=== PATIENT | female | born 2000 | race African-American/Black ===

== ENCOUNTER 2020-10-20 20:18 | Inpatient (IN) ==
[2020-10-20] MEDS ORDERED: ACETAMINOPHEN 1,000 MG/100 ML VIAL IV STA (21:59)
--- NOTE | 2020-10-20 22:07 | Emergency Department Note ---
History of Present Illness General Chief complaint: Shortness of Breath/Dyspnea Stated complaint: TROUBLE BREATHING, POSSIBLY PULLED SOMETHING Time Seen by Provider: 10/20/20 21:38 Source: patient Mode of arrival: ambulatory Limitations: no limitations History of Present Illness Provider complaint: Rib pain, flank pain Onset (ago): day(s) 2 Location: chest Radiation: flank Severity: moderate Pain Consistency: + constant Maximum Pain Intensity: 8 Quality: + constant Relieved By: + none Exacerbated By: + movement Associated symptoms: + nausea/vomiting and + shortness of breath; no chest pain, no cough, no fever/chills, no headaches and no syncope Treatments prior to arrival: none This is a 20-year-old female presents emergency department complaining of left flank and rib pain. Patient states pain is constant, sharp, initially felt it was a little more in the back of posterior flank and then radiated forward to the lateral left ribs. No pain further into the central chest or abdomen. No recent trauma or change in activity. Patient denies any recent leg swelling or calf tenderness. Patient denies any recent fevers, chills, cough, or other URI symptoms. Patient does use control. No recent worsening seasonal allergies or asthma-like symptoms. Patient denies any similar prior episodes. Patient denies any history of heart problems. Denies any family history of young onset CAD or sudden cardiac . Denies any family history of DVT/PE. Patient states taking a deep breath makes the pain worse, standing up and walking makes the pain hurt worse, as well as lying flat. Pt seen during a time of high acuity and national emergency pandemic while wearing PPE. Home Medications Medication Instructions Recorded Confirmed Type albuterol sulfate 90 mcg/actuation 2 puff INHALATION QID PRN #6.7 g 06/10/20 10/20/20 Rx aerosol inhaler desogestrel 0.15 mg-ethinyl 1 tab PO DAILY #28 tab 06/11/20 10/20/20 Rx estradiol 0.03 mg tablet escitalopram oxalate 10 mg tablet 10 mg PO DAILY #30 tab 08/12/20 10/20/20 Rx Allergies Allergy/AdvReac Type Severity Reaction Status Date / Time No Known Allergies Allergy Verified 10/20/20 22:18 Past Med/Surg History Medical History Acne Anxiety Asthma Depression Surgical History History of wisdom tooth extraction Family History Denies family history of Ovarian cancer Prostate cancer Myocardial infarction Breast cancer Colorectal cancer Social History Smoking Status: Never smoker Hx Alcohol Use: Yes Alcohol type: wine Alcohol Intake Frequency: 2-3 x/Week Hx Substance Use: Yes Prescribed Medications: Marijuana Last Used Substance Other:: Quit using Marijuana 09/2019 Preferred Language: Croatian marital status: Single Current Living Situation: Other Current Living Situation Comment: lives with roommates current occupational status: employed and student current occupation: [employer] Feels Safe at Home: Yes caffeine: Yes Dental Care, Regularly: Yes Physical Activity Frequency: 1-2 Times per Week Seatbelt Use: always Sunscreen Use: No Review of Systems See HPI for pertinent positives & negatives. and A total of 10 systems reviewed and were otherwise negative Physical Exam Vital Signs Vital Signs - 24 hr 10/20/20 20:21 10/20/20 22:05 10/20/20 22:17 Temperature 37.3 C Temperature Source Oral Pulse Rate 107 H Pulse Rate [Finger] 86 Pulse Rate from SpO2 Sensor Pulse Rhythm Regular Pulse Strength Normal Respiratory Rate 22 18 Respiratory Effort / Characteristics Non-Labored Spontaneous Respiratory Depth Normal Respiratory Pattern Regular Blood Pressure 138/82 Blood Pressure [Left Arm] 129/72 Blood Pressure Mean 100 Blood Pressure Mean [Left Arm] 91 Blood Pressure Position Sitting Blood Pressure Position [Left Arm] Sitting Pulse Oximetry 99 99 Oxygen Delivery Method Room Air Room Air Oxygen Flow Rate 99 Sepsis Recent Fever Within 48 Hours No Sepsis New/Unexplained Change in Mental Status No Sepsis Action Taken by Nursing Physician Notified 10/21/20 00:20 10/21/20 00:22 10/21/20 00:27 Temperature Temperature Source Pulse Rate 75 77 Pulse Rate [Finger] 78 Pulse Rate from SpO2 Sensor 77 77 Pulse Rhythm Pulse Strength Respiratory Rate 32 H 14 33 H Respiratory Effort / Characteristics Spontaneous Respiratory Depth Respiratory Pattern Blood Pressure 115/81 Blood Pressure [Left Arm] 115/81 Blood Pressure Mean 92 Blood Pressure Mean [Left Arm] 92 Blood Pressure Position Blood Pressure Position [Left Arm] Pulse Oximetry 99 98 98 Oxygen Delivery Method Room Air Oxygen Flow Rate Sepsis Recent Fever Within 48 Hours Sepsis New/Unexplained Change in Mental Status Sepsis Action Taken by Nursing 10/21/20 00:30 10/21/20 00:31 10/21/20 00:40 Temperature Temperature Source Pulse Rate 76 75 88 Pulse Rate [Finger] Pulse Rate from SpO2 Sensor 77 76 86 Pulse Rhythm Pulse Strength Respiratory Rate 29 H 17 25 H Respiratory Effort / Characteristics Respiratory Depth Respiratory Pattern Blood Pressure 123/77 Blood Pressure [Left Arm] Blood Pressure Mean 92 Blood Pressure Mean [Left Arm] Blood Pressure Position Blood Pressure Position [Left Arm] Pulse Oximetry 99 99 100 Oxygen Delivery Method Oxygen Flow Rate Sepsis Recent Fever Within 48 Hours Sepsis New/Unexplained Change in Mental Status Sepsis Action Taken by Nursing 10/21/20 00:50 10/21/20 01:00 10/21/20 01:01 Temperature Temperature Source Pulse Rate 85 75 79 Pulse Rate [Finger] Pulse Rate from SpO2 Sensor 82 74 81 Pulse Rhythm Pulse Strength Respiratory Rate 24 22 31 H Respiratory Effort / Characteristics Respiratory Depth Respiratory Pattern Blood Pressure 116/80 Blood Pressure [Left Arm] Blood Pressure Mean 92 Blood Pressure Mean [Left Arm] Blood Pressure Position Blood Pressure Position [Left Arm] Pulse Oximetry 98 98 98 Oxygen Delivery Method Oxygen Flow Rate Sepsis Recent Fever Within 48 Hours Sepsis New/Unexplained Change in Mental Status Sepsis Action Taken by Nursing 10/21/20 01:10 10/21/20 01:20 10/21/20 01:30 Temperature Temperature Source Pulse Rate 78 77 79 Pulse Rate [Finger] Pulse Rate from SpO2 Sensor 76 77 77 Pulse Rhythm Pulse Strength Respiratory Rate 13 34 H 31 H Respiratory Effort / Characteristics Respiratory Depth Respiratory Pattern Blood Pressure 119/71 Blood Pressure [Left Arm] Blood Pressure Mean 87 Blood Pressure Mean [Left Arm] Blood Pressure Position Blood Pressure Position [Left Arm] Pulse Oximetry 99 98 99 Oxygen Delivery Method Oxygen Flow Rate Sepsis Recent Fever Within 48 Hours Sepsis New/Unexplained Change in Mental Status Sepsis Action Taken by Nursing 10/21/20 01:31 10/21/20 01:40 10/21/20 01:50 Temperature Temperature Source Pulse Rate 76 78 77 Pulse Rate [Finger] Pulse Rate from SpO2 Sensor 76 79 79 Pulse Rhythm Pulse Strength Respiratory Rate 36 H 32 H 18 Respiratory Effort / Characteristics Respiratory Depth Respiratory Pattern Blood Pressure Blood Pressure [Left Arm] Blood Pressure Mean Blood Pressure Mean [Left Arm] Blood Pressure Position Blood Pressure Position [Left Arm] Pulse Oximetry 99 99 98 Oxygen Delivery Method Oxygen Flow Rate Sepsis Recent Fever Within 48 Hours Sepsis New/Unexplained Change in Mental Status Sepsis Action Taken by Nursing 10/21/20 02:00 10/21/20 02:01 10/21/20 02:10 Temperature Temperature Source Pulse Rate 77 77 73 Pulse Rate [Finger] Pulse Rate from SpO2 Sensor 74 77 74 Pulse Rhythm Pulse Strength Respiratory Rate 27 H 25 H 33 H Respiratory Effort / Characteristics Respiratory Depth Respiratory Pattern Blood Pressure 125/81 Blood Pressure [Left Arm] Blood Pressure Mean 95 Blood Pressure Mean [Left Arm] Blood Pressure Position Blood Pressure Position [Left Arm] Pulse Oximetry 98 99 98 Oxygen Delivery Method Oxygen Flow Rate Sepsis Recent Fever Within 48 Hours Sepsis New/Unexplained Change in Mental Status Sepsis Action Taken by Nursing 10/21/20 02:20 10/21/20 02:30 10/21/20 02:31 Temperature Temperature Source Pulse Rate 73 90 92 H Pulse Rate [Finger] Pulse Rate from SpO2 Sensor 75 89 91 H Pulse Rhythm Pulse Strength Respiratory Rate 20 23 20 Respiratory Effort / Characteristics Respiratory Depth Respiratory Pattern Blood Pressure 130/92 Blood Pressure [Left Arm] Blood Pressure Mean 104 Blood Pressure Mean [Left Arm] Blood Pressure Position Blood Pressure Position [Left Arm] Pulse Oximetry 99 98 98 Oxygen Delivery Method Oxygen Flow Rate Sepsis Recent Fever Within 48 Hours Sepsis New/Unexplained Change in Mental Status Sepsis Action Taken by Nursing 10/21/20 02:40 10/21/20 02:50 10/21/20 02:56 Temperature Temperature Source Pulse Rate 81 82 84 Pulse Rate [Finger] Pulse Rate from SpO2 Sensor 80 83 82 Pulse Rhythm Pulse Strength Respiratory Rate 22 28 H 29 H Respiratory Effort / Characteristics Respiratory Depth Respiratory Pattern Blood Pressure 134/80 Blood Pressure [Left Arm] Blood Pressure Mean 98 Blood Pressure Mean [Left Arm] Blood Pressure Position Blood Pressure Position [Left Arm] Pulse Oximetry 99 98 99 Oxygen Delivery Method Oxygen Flow Rate Sepsis Recent Fever Within 48 Hours Sepsis New/Unexplained Change in Mental Status Sepsis Action Taken by Nursing 10/21/20 03:00 Temperature Temperature Source Pulse Rate 93 H Pulse Rate [Finger] Pulse Rate from SpO2 Sensor 90 Pulse Rhythm Pulse Strength Respiratory Rate 36 H Respiratory Effort / Characteristics Respiratory Depth Respiratory Pattern Blood Pressure 129/84 Blood Pressure [Left Arm] Blood Pressure Mean 99 Blood Pressure Mean [Left Arm] Blood Pressure Position Blood Pressure Position [Left Arm] Pulse Oximetry 98 Oxygen Delivery Method Oxygen Flow Rate Sepsis Recent Fever Within 48 Hours Sepsis New/Unexplained Change in Mental Status Sepsis Action Taken by Nursing GENERAL: alert, uncomfortable appearing, well nourished, mild distress, non- toxic EYE EXAM: normal conjunctiva, PERRL and EOM's grossly intact OROPHARYNX: no exudate, no erythema, lips, buccal mucosa, and tongue normal and mucous membranes are moist NECK: supple, no nuchal rigidity, no adenopathy, non-tender LUNGS: Clear to auscultation. Normal chest wall mechanics, no w/r/r, shallow respirations, mild tachypnea noted HEART: no murmurs, S1 normal and S2 normal, pain with palpation of the left lateral ribs, no overlying erythema or rash ABDOMEN: abdomen soft, non-tender, normo-active bowel sounds, no masses, no rebound or guarding. BACK: Back is symmetrical on inspection and there is no deformity, no midline tenderness, no CVA tenderness. SKIN: no rashes and no bruising UPPER EXTREMITIES: upper extremities are grossly normal. FROM, nml pulses b/l. LOWER EXTREMITIES: No pitting edema. FROM, nml pulses b/l. Negative calf tenderness bilaterally. NEURO EXAM: Normal sensorium, cranial nerves II-XII grossly intact, normal speech, no gross weakness of arms, no gross weakness of legs. Gross sensation intact. Course Course 0047: Patient updated on results. Discussed options for disposition as well as concerns given extensive PEs with pulmonary infarct. Patient is still having pain and having shallow rapid respirations at bedside. Will add additional pain medication. Patient in agreement with plan for additional inpatient evaluation. 0145: Case discussed with Dr. Reed. Administered Medications Discontinued Medications Enoxaparin Sodium (Enoxaparin 1 Mg/Kg) 1 mg SQ NOW STA Stop: 10/21/20 01:49 Last Admin: 10/21/20 02:05 Dose: Not Given Documented by: [id number] Enoxaparin Sodium (Enoxaparin 80 Mg/0.8 Ml Syr) 70 mg SQ NOW STA Stop: 10/21/20 02:03 Last Admin: 10/21/20 02:56 Dose: 70 mg Documented by: [id number] Acetaminophen (Ofirmev) 1,000 mg in 100 mls @ 400 mls/hr IV NOW STA Stop: 10/20/20 22:13 Last Infusion: 10/20/20 22:30 Dose: 0 mls/hr Documented by: [id number] Admin: 10/20/20 22:15 Dose: 400 mls/hr Documented by: [id number] Ioversol (Optiray 320 150ml) 115 ml IV ONCE ONE Stop: 10/20/20 23:16 Last Admin: 10/20/20 23:16 Dose: 115 ml Documented by: [id number] Morphine Sulfate (Morphine Sulfate 2 Mg/Ml Carp) 2 mg IV NOW STA Stop: 10/21/20 01:12 Last Admin: 10/21/20 01:38 Dose: 2 mg Documented by: [id number] Medical Decision Making Differential Diagnosis Differential diagnoses includes but is not limited to acute coronary syndrome, myocardial infarction, pericarditis, pulmonary embolus, aortic dissection, pneumonia, pneumothorax, musculoskeletal, shingles, esophageal. Medical Records Attestation: I reviewed the patient's medical records. Home Medications Current Medication List: was personally reviewed by me Laboratory Data Attestation: I reviewed the patient's lab results. Result diagrams: 10/20/20 22:19 10/20/20 22:19 Lab Results 10/20/20 10/20/20 10/20/20 Range/Units 22:19 22:19 22:19 WBC 7.76 (4.8-10.8) K/uL RBC 4.57 (4.2-5.4) M/uL Hgb 12.6 (12.0-16.0) g/dL Hct 37.6 (37-47) % MCV 82.3 (80-100) fL MCH 27.6 (25-34) pg MCHC 33.5 (32-36) g/dL RDW Std Deviation 41.6 (36.4-46.3) fL RDW Coeff of Dony 13.9 (11.5-14.5) % Plt Count 303 (130-400) K/uL MPV 9.8 (7.4-10.4) fL Immature Gran % (Auto) 0.1 % Neut % (Auto) 75.6 % Lymph % (Auto) 15.3 % Day % (Auto) 8.2 % Eos % (Auto) 0.5 % Baso % (Auto) 0.3 % Neut # (Auto) 5.86 (1.4-6.5) K/uL Lymph # (Auto) 1.19 L (1.2-3.4) K/uL Day # (Auto) 0.64 H (0.11-0.59) K/uL Eos # (Auto) 0.04 (0-0.5) K/uL Baso # (Auto) 0.02 (0-0.2) K/uL Immature Gran # (Auto) 0.01 (0.00-0.02) K/uL D-Dimer 1120 H* (0-500) ug/L FEU Sodium 137 (136-145) mmol/L Potassium 3.4 L (3.5-5.1) mmol/L Chloride 106 (98-107) mmol/L Carbon Dioxide 24 (21-32) mmol/L Anion Gap 7.0 (3-11) BUN 10 (7-18) mg/dl Creatinine 0.75 (0.6-1.2) mg/dl Est Cr Clr Drug Dosing 119.7 ml/min Est GFR ( Amer) 132.1 ml/min Est GFR (Non-Af Amer) 113.9 ml/min BUN/Creatinine Ratio 13.9 (10-20) Glucose 94 (70-99) mg/dl Calcium 9.1 (8.5-10.1) mg/dl Magnesium 2.1 (1.8-2.4) mg/dl Total Bilirubin 0.4 (0.2-1) mg/dl AST 73 H (15-37) U/L ALT 22 (12-78) U/L Alkaline Phosphatase 51 (45-117) U/L Troponin I < 0.015 (0-0.045) ng/ml Total Protein 7.8 (6.4-8.2) gm/dl Albumin 3.5 (3.4-5.0) gm/dl Globulin 4.3 H (2.5-4.0) gm/dl Albumin/Globulin Ratio 0.8 L (0.9-2) HCG, Qual (Negative) 10/20/20 Range/Units 22:19 WBC (4.8-10.8) K/uL RBC (4.2-5.4) M/uL Hgb (12.0-16.0) g/dL Hct (37-47) % MCV (80-100) fL MCH (25-34) pg MCHC (32-36) g/dL RDW Std Deviation (36.4-46.3) fL RDW Coeff of Dony (11.5-14.5) % Plt Count (130-400) K/uL MPV (7.4-10.4) fL Immature Gran % (Auto) % Neut % (Auto) % Lymph % (Auto) % Day % (Auto) % Eos % (Auto) % Baso % (Auto) % Neut # (Auto) (1.4-6.5) K/uL Lymph # (Auto) (1.2-3.4) K/uL Day # (Auto) (0.11-0.59) K/uL Eos # (Auto) (0-0.5) K/uL Baso # (Auto) (0-0.2) K/uL Immature Gran # (Auto) (0.00-0.02) K/uL D-Dimer (0-500) ug/L FEU Sodium (136-145) mmol/L Potassium (3.5-5.1) mmol/L Chloride (98-107) mmol/L Carbon Dioxide (21-32) mmol/L Anion Gap (3-11) BUN (7-18) mg/dl Creatinine (0.6-1.2) mg/dl Est Cr Clr Drug Dosing ml/min Est GFR ( Amer) ml/min Est GFR (Non-Af Amer) ml/min BUN/Creatinine Ratio (10-20) Glucose (70-99) mg/dl Calcium (8.5-10.1) mg/dl Magnesium (1.8-2.4) mg/dl Total Bilirubin (0.2-1) mg/dl AST (15-37) U/L ALT (12-78) U/L Alkaline Phosphatase (45-117) U/L Troponin I (0-0.045) ng/ml Total Protein (6.4-8.2) gm/dl Albumin (3.4-5.0) gm/dl Globulin (2.5-4.0) gm/dl Albumin/Globulin Ratio (0.9-2) HCG, Qual Negative (Negative) Imaging Data Radiologist's Impression: CTA chest: Acute lobar, segmental, subsegmental emboli in both lower lobes, left worse than right. No right ventricular strain. 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 Small left pleural effusion. No thoracic aortic aneurysm or dissection. Heart size is normal. No pneumothorax. No acute osseous findings. Radiologist: Lio Mclean MD ECG Data Attestation: I personally reviewed and interpreted this ECG as follows: Indication: + chest pain Rate (beats per minute): 87 Rhythm: + normal sinus ECG Intervals/blocks: + Normal QRS and + Normal QT ECG [place]: + Normal ECG ST segments: + T-wave inversions (V1-2) MDM Narrative This is a 20-year-old female who presents due to concern for left rib and flank pain. Patient was found to be tachycardic and tachypneic here although otherwise hemodynamically stable. No hypoxia noted. No prior similar episodes. No risk factors for cardiac etiology of complaints. Due to patient's use of oral contraceptives and tachycardia, D-dimer was added which is found to be elev ated. Patient sent for CT angiography of the chest which revealed multiple bilateral PEs as well as evolving pulmonary infarct. Did discuss all these results with patient at bedside. She was given medication for pain and monitored on telemetry. Discussed initiation of anticoagulation and monitoring as an inpatient until choice of outpatient anticoagulation was decided and pain was better under control. Patient verbalized understanding of all results and was in agreement with plan. No evidence of right heart strain on CT and troponin negative. Case discussed with the hospitalist, after this discussion patient given dose of Lovenox here. An order was placed for continuous cardiac monitoring. The monitor shows a rate of _101_ with _sinus tachycardia_ rhythm. Impression & Plan Chest pain, Pulmonary embolism, Infarctions, pulmonary Discharge Plan Visit Data Chief Complaint: Shortness of Breath/Dyspnea Stated Complaint: TROUBLE BREATHING, POSSIBLY PULLED SOMETHING ED Provider: Polly Atkins Discharge Problem: Chest pain, Pulmonary embolism, Infarctions, pulmonary Patient Disposition: Being Evaluated by Hospitalist Condition: Fair Forms Stand Alone Forms: My [employer] Prescriptions Prescriptions: No Action escitalopram oxalate 10 mg tablet 10 mg PO DAILY Qty: 30 RF: 5 desogestrel-ethinyl estradiol [Apri] 0.15-0.03 mg tablet 1 tab PO DAILY Qty: 28 RF: 11 albuterol sulfate 90 mcg/actuation HFA aerosol inhaler 2 puff inhalation QID PRN (Reason: shortness of breath or wheezing) Qty: 6.7 RF: 0 Referrals Referrals: Norma Lamb MD [Primary Care Provider] -
[2020-10-20 22:28] LABS: Basophils # (auto) 0.02 K/uL (0-0.2); Basophils % (auto) 0.3 %; Eosinophils # (auto) 0.04 K/uL (0-0.5); Eosinophils % (auto) 0.5 %; Hematocrit (blood only) 37.6 % (37-47); Hemoglobin 12.6 g/dL (12.0-16.0); Immature Granulocytes # (auto) 0.01 K/uL (0.00-0.02); Immature Granulocytes % (auto) 0.1 %; Lymphocytes # (auto) 1.19 K/uL (1.2-3.4); Lymphocytes % (auto) 15.3 %; Mean Corpuscular Hemoglobin 27.6 pg (25-34); Mean Corpuscular Hgb Conc 33.5 g/dL (32-36); Mean Corpuscular Volume 82.3 fL (80-100); Mean Platelet Volume 9.8 fL (7.4-10.4); Monocytes # (auto) 0.64 K/uL (0.11-0.59); Monocytes % (auto) 8.2 %; Neutrophils # (auto) 5.86 K/uL (1.4-6.5); Neutrophils % (auto) 75.6 %; Platelet Count 303 K/uL (130-400); RDW Coefficient of Variation 13.9 % (11.5-14.5); RDW Standard Deviation 41.6 fL (36.4-46.3); Red Blood Count 4.57 M/uL (4.2-5.4); White Blood Count 7.76 K/uL (4.8-10.8)
[2020-10-20 22:46] LABS: Alanine Aminotransferase 22 U/L (12-78); Albumin Level 3.5 gm/dl (3.4-5.0); Aspartate Aminotransferase 73 U/L (15-37); BUN Creatinine Ratio 13.9 (10-20); Blood Urea Nitrogen 10 mg/dl (7-18); Calcium 9.1 mg/dl (8.5-10.1); Carbon Dioxide 24 mmol/L (21-32); Chloride 106 mmol/L (98-107); Creatinine Clr Calc Pharmacy 119.7 ml/min; Est GFR (African American) 132.1 ml/min; Est GFR (Non-African American) 113.9 ml/min; Glucose 94 mg/dl (70-99); Magnesium 2.1 mg/dl (1.8-2.4); Potassium 3.4 mmol/L (3.5-5.1); Sodium 137 mmol/L (136-145)
[2020-10-20 22:48] LABS: D Dimer 1120 ug/L FEU (0-500)
[2020-10-20 22:56] LABS: Albumin Globulin Ratio 0.8 (0.9-2); Alkaline Phosphatase 51 U/L (45-117); Bilirubin,Total 0.4 mg/dl (0.2-1); Globulin 4.3 gm/dl (2.5-4.0); Total Protein 7.8 gm/dl (6.4-8.2); Troponin I < 0.015 ng/ml (0-0.045)
[2020-10-20] MEDS ORDERED: OPTIRAY 320 150ml IV ONE (23:15)
[2020-10-20 23:39] LABS: Pregnancy Test, Serum Negative (Negative)
[2020-10-21] MEDS ORDERED: MoRPHine SULFATE 2 MG/ML CARP IV STA (01:11)
[2020-10-21] MEDS ORDERED: ENOXAPARIN 1 MG/KG SQ STA (01:48)
[2020-10-21] MEDS ORDERED: ENOXAPARIN 80 MG/0.8 ML SYR SQ STA (02:02)
--- NOTE | 2020-10-21 02:54 | History & Physical Report ---
Date of Service October 21, 2020 Assessment & Plan (1) Acute pulmonary embolism: 20yo female with bilateral PE. Most likely provoked VTE in setting of hormonal OCP use. HD stable, no evidence of right heart strain. -Admit to medical -Lovenox 1mg/kg with transition to DOAC in AM -Tylenol PRN -Morphine PRN -Lidoderm patch PRN Present on Admission?: Yes (2) Anxiety and depression: Chronic. Stable -Continue Escitalopram F/E/N - Heplock. K repletion with 40mEq. Regular diet as tolerated Ppx - Lovenox for treatment of PE as above Code - Full Dispo - Admit to medical with telemetry for anticoagulation and pain management History of Present Illness Chief Complaint: bilateral PE Primary Care Provider: Norma Lamb MD Jessika Van is a pleasant 20yo female presenting with bilateral PEs. She reports left sided posterior chest/rib pain starting appx 2 days ago - worse with movement and deep breathing. Also with fatigue. Found to have extensive bilateral PEs with pulmonary infarct. No prior history of VTE, no family history of VTE. No immobility or trauma. She is on hormonal OCPs/desogestrel ethinyl estradiol. ER Course: Lovenox 70mg, Tylenol, Morphine Allergies Allergy/AdvReac Type Severity Reaction Status Date / Time No Known Allergies Allergy Verified 10/20/20 22:18 Home Medications Medication Instructions Recorded Confirmed Type albuterol sulfate 90 mcg/actuation 2 puff INHALATION QID PRN #6.7 g 06/10/20 10/20/20 Rx aerosol inhaler desogestrel 0.15 mg-ethinyl 1 tab PO DAILY #28 tab 06/11/20 10/20/20 Rx estradiol 0.03 mg tablet escitalopram oxalate 10 mg tablet 10 mg PO DAILY #30 tab 08/12/20 10/20/20 Rx Past Med/Surg History Medical History Acne Anxiety Asthma Depression Surgical History History of wisdom tooth extraction Family History Denies family history of Ovarian cancer Prostate cancer Myocardial infarction Breast cancer Colorectal cancer Social History Smoking Status: Never smoker Hx Alcohol Use: Yes Alcohol type: wine Alcohol Intake Frequency: 2-3 x/Week Hx Substance Use: Yes Prescribed Medications: Marijuana Last Used Substance Other:: Quit using Marijuana 09/2019 Preferred Language: Israeli marital status: Single Current Living Situation: Other Current Living Situation Comment: lives with roommates current occupational status: employed and student current occupation: [employer] Feels Safe at Home: Yes caffeine: Yes Dental Care, Regularly: Yes Physical Activity Frequency: 1-2 Times per Week Seatbelt Use: always Sunscreen Use: No Review of Systems Review of Systems: All systems reviewed & are unremarkable except as noted in HPI & below Physical Exam Physical Exam: General: patient resting comfortably, NAD, non-toxic in appearance, AA&O x 4 Skin: warm, dry, intact, no rashes or lesions HEENT: NC/AT, PERRL, EOMI, anicteric sclera, conjunctiva without injection, external ear normal to inspection and nontender, nares patent, moist mucus membranes, dentition intact, no oropharyngeal lesions, neck supple, trachea midline, no LAD, no thyromegaly, no JVD Heart: +S1/S2, regular, no m/r/g Lungs: equal air entry bilaterally, no rales/rhonchi/wheezes, patient taking short/shallow breaths, significant left sided back pain with deep breathing Abd: +BS, soft, NT/ND, no masses/organomegaly/ascites Ext: warm, 2+ pulses in UE/LE bilaterally, no clubbing/cyanosis or edema Neuro: nonfocal, patient AA&O x 4, speech intact, no facial droop, moving all extremities on command with equal strength 5/5 Results & Data Results & Data ([facility]) Vital Signs (Past 12 Hours) Vital Signs Temp Pulse Pulse Resp BP BP Pulse Ox 10/21/20 00:22 78 14 115/81 98 10/20/20 22:17 86 18 129/72 99 10/20/20 20:21 37.3 C 107 H 22 138/82 99 Laboratory Results Laboratory Results WBC 7.76 K/uL (4.8-10.8) 10/20/20 22:19 RBC 4.57 M/uL (4.2-5.4) 10/20/20 22:19 Hgb 12.6 g/dL (12.0-16.0) 10/20/20 22:19 Hct 37.6 % (37-47) 10/20/20 22:19 MCV 82.3 fL (80-100) 10/20/20 22:19 MCH 27.6 pg (25-34) 10/20/20 22:19 MCHC 33.5 g/dL (32-36) 10/20/20 22:19 RDW Std Deviation 41.6 fL (36.4-46.3) 10/20/20 22:19 RDW Coeff of Dony 13.9 % (11.5-14.5) 10/20/20 22:19 Plt Count 303 K/uL (130-400) 10/20/20 22:19 MPV 9.8 fL (7.4-10.4) 10/20/20 22:19 Immature Gran % (Auto) 0.1 % 10/20/20 22:19 Neut % (Auto) 75.6 % 10/20/20 22:19 Lymph % (Auto) 15.3 % 10/20/20 22:19 Larimer % (Auto) 8.2 % 10/20/20 22:19 Eos % (Auto) 0.5 % 10/20/20 22:19 Baso % (Auto) 0.3 % 10/20/20 22:19 Neut # (Auto) 5.86 K/uL (1.4-6.5) 10/20/20 22:19 Lymph # (Auto) 1.19 K/uL (1.2-3.4) L 10/20/20 22:19 Larimer # (Auto) 0.64 K/uL (0.11-0.59) H 10/20/20 22:19 Eos # (Auto) 0.04 K/uL (0-0.5) 10/20/20 22:19 Baso # (Auto) 0.02 K/uL (0-0.2) 10/20/20 22:19 Immature Gran # (Auto) 0.01 K/uL (0.00-0.02) 10/20/20 22:19 D-Dimer 1120 ug/L FEU (0-500) H* 10/20/20 22:19 Sodium 137 mmol/L (136-145) 10/20/20 22:19 Potassium 3.4 mmol/L (3.5-5.1) L 10/20/20 22:19 Chloride 106 mmol/L (98-107) 10/20/20 22:19 Carbon Dioxide 24 mmol/L (21-32) 10/20/20 22:19 Anion Gap 7.0 (3-11) 10/20/20 22:19 BUN 10 mg/dl (7-18) 10/20/20 22:19 Creatinine 0.75 mg/dl (0.6-1.2) 10/20/20 22:19 Est Cr Clr Drug Dosing 119.7 ml/min 10/20/20 22:19 Est GFR ( Amer) 132.1 ml/min 10/20/20 22:19 Est GFR (Non-Af Amer) 113.9 ml/min 10/20/20 22:19 BUN/Creatinine Ratio 13.9 (10-20) 10/20/20 22:19 Glucose 94 mg/dl (70-99) 10/20/20 22:19 Calcium 9.1 mg/dl (8.5-10.1) 10/20/20 22:19 Magnesium 2.1 mg/dl (1.8-2.4) 10/20/20 22:19 Total Bilirubin 0.4 mg/dl (0.2-1) 10/20/20 22:19 AST 73 U/L (15-37) H 10/20/20 22:19 ALT 22 U/L (12-78) 10/20/20 22:19 Alkaline Phosphatase 51 U/L (45-117) 10/20/20 22:19 Troponin I < 0.015 ng/ml (0-0.045) 10/20/20 22:19 Total Protein 7.8 gm/dl (6.4-8.2) 10/20/20 22:19 Albumin 3.5 gm/dl (3.4-5.0) 10/20/20 22:19 Globulin 4.3 gm/dl (2.5-4.0) H 10/20/20 22:19 Albumin/Globulin Ratio 0.8 (0.9-2) L 10/20/20 22:19 HCG, Qual Negative (Negative) 10/20/20 22:19 Diagnostic Findings CTA per STAT rad - Acute lobar, segmental, subsegmental emboli in both lower lobes, left worse than right. No RV strain. Multiple pulmonary infarcts developing in the subpleural left lower lobe. Small eft pleural effusion. No thoracic aortic aneurysm or dissection. Heart size is normal. No pneumothorax. No acute osseous findings. PG Care Time/CCT Total # of Minutes Spent Total Time Spent with Patient: Total time spent is greater than 50% in coordination of care (as documented) at patient's floor/unit and/or counseling patient: Coding Level of Care Code 73747 Initial Inpt Care Lvl 2 Diagnoses Acute pulmonary embolism I26.99 Pulmonary embolism type: unspecified Acute cor pulmonale presence: without acute cor pulmonale Anxiety and depression F41.9; F32.9 (1) Acute pulmonary embolism Pulmonary embolism type: unspecified Acute cor pulmonale presence: without acute cor pulmonale Qualified Code(s): I26.99 - Other pulmonary embolism without acute cor pulmonale
[2020-10-21] MEDS ORDERED: HYDROmorphone INJ 1 MG/ML SYRINGE IV STA (05:47)
[2020-10-21] MEDS ORDERED: POTASSIUM CHLORIDE CRTAB 20 MEQ TABCR PO STA (06:02)
[2020-10-21] MEDS ORDERED: ONDANSETRON INJ 2 MG/ML 2 ML VIAL IV PRN (06:02)
[2020-10-21] MEDS ORDERED: MoRPHine SULFATE 2 MG/ML CARP IV PRN (06:02)
[2020-10-21] MEDS ORDERED: ACETAMINOPHEN 325 MG TAB PO PRN (06:02)
--- NOTE | 2020-10-21 08:47 | CT Scan Report ---
CT ANGIOGRAPHY OF THE CHEST, PULMONARY EMBOLUS PROTOCOL CLINICAL HISTORY: Shortness of breath. Back pain. Evaluate for pulmonary embolus. COMPARISON STUDY: No previous studies for comparison. TECHNIQUE: Following IV administration of 115 mL of Optiray, helical axial images of the chest were o btained utilizing the pulmonary embolus protocol. Maximal intensity projections and sagittal and cor onal reformats were viewed on an independent 3D workstation. IV contrast was administered without co mplication. Automated exposure control was utilized for the study. A dose lowering technique was ut ilized adhering to the principles of ALARA. CT DOSE: 273.09 mGycm FINDINGS: The size of the heart is normal. There is no pericardial effusion. Note is made pulmonary emboli within the left lower lobe pulmonary artery extending into the segmental branches of the left lower lobe. Emboli within the right lower lobe pulmonary artery also noted. There are multiple subple ural opacities within the left lower lobe consistent with infarcts. There is a small left pleural eff usion. There is no pneumothorax. Note acute fracture or suspicious lesion is identified within visual ized portions of the bony thorax. Upper abdomen is unremarkable. IMPRESSION: Multiple bilateral lower lobe lobar and segmental pulmonary emboli with multiple left lower lobe pulm onary infarcts and a small left pleural effusion. ACT 112: Negative or not required by law. Electronically signed by: Tyrone Laird M.D. 10/21/2020 8:46 AM
[2020-10-21] MEDS ORDERED: LIDOCAINE 5% 1 PATCH TD SCH (09:00)
[2020-10-21] MEDS ORDERED: ESCITALOPRAM OXALATE 10 MG TAB PO SCH (09:00)
[2020-10-21] MEDS ORDERED: APIXABAN 5 MG TABLET PO SCH (11:00)
[2020-10-21] MEDS ORDERED: ENOXAPARIN 80 MG/0.8 ML SYR SQ SCH (13:30)
[2020-10-21] MEDS ORDERED: ENOXAPARIN 1 MG/KG SQ SCH (14:00)
--- NOTE | 2020-10-22 06:38 | Electrocardiogram Report ---
Test Reason : Blood Pressure : / mmHG Vent. Rate : 087 BPM Atrial Rate : 087 BPM P-R Int : 122 ms QRS Dur : 088 ms QT Int : 360 ms P-R-T Axes : 060 040 019 degrees QTc Int : 433 ms Poor data quality, interpretation may be adversely affected Normal sinus rhythm Normal ECG No previous ECGs available Confirmed by Eitan Llanos ([id number]) on 10/22/2020 6:37:59 AM Referred By: REFERRED SELF Confirmed By:Eitan Llanos
--- NOTE | 2020-10-22 06:51 | Electrocardiogram Report ---
Test Reason : Blood Pressure : / mmHG Vent. Rate : 091 BPM Atrial Rate : 091 BPM P-R Int : 134 ms QRS Dur : 084 ms QT Int : 364 ms P-R-T Axes : 063 041 023 degrees QTc Int : 447 ms Normal sinus rhythm Possible Left atrial enlargement Nonspecific T wave abnormality Abnormal ECG When compared with ECG of 20-OCT-2020 22:05, No significant change was found Confirmed by Eitan Llanos ([id number]) on 10/22/2020 6:51:21 AM Referred By: REFERRED SELF Confirmed By:Eitan Llanos
[2020-10-23 22:57] LABS: Protein S Functional(Activity) 40 % (60-140)
--- NOTE | 2020-10-24 12:52 | Discharge Summary ---
Date of Service October 21, 2020 Admission HPI Per Admitting Provider Jessika Van is a pleasant 20yo female presenting with bilateral PEs. She reports left sided posterior chest/rib pain starting appx 2 days ago - worse with movement and deep breathing. Also with fatigue. Found to have extensive bilateral PEs with pulmonary infarct. No prior history of VTE, no family history of VTE. No immobility or trauma. She is on hormonal OCPs/desogestrel ethinyl estradiol. ER Course: Lovenox 70mg, Tylenol, Morphine Principal Diagnosis acute pumonary embolism Discharge Exam General: patient resting comfortably, NAD, non-toxic in appearance, AA&O x 4 Skin: warm, dry, intact, no rashes or lesions HEENT: NC/AT, PERRL, EOMI, anicteric sclera, conjunctiva without injection, external ear normal to inspection and nontender, nares patent, moist mucus membranes, dentition intact, no oropharyngeal lesions, neck supple, trachea midline, no LAD, no thyromegaly, no JVD Heart: +S1/S2, regular, no m/r/g Lungs: equal air entry bilaterally, no rales/rhonchi/wheezes Abd: +BS, soft, NT/ND, no masses/organomegaly/ascites Ext: warm, 2+ pulses in UE/LE bilaterally, no clubbing/cyanosis or edema Neuro: nonfocal, patient AA&O x 4, speech intact, no facial droop, moving all extremities on command with equal strength 5/5 Discharge Data Allergies Allergy/AdvReac Type Severity Reaction Status Date / Time No Known Allergies Allergy Verified 10/20/20 22:18 Consultations 10/21/20 01:49 ED Decision to Admit Stat Ordered Studies 10/20/20 22:54 CT angio chest PE protocol Urgent Hospital Course (1) Acute pulmonary embolism: 20yo female with bilateral PE. Most likely provoked VTE in setting of hormonal OCP use. HD stable, no evidence of right heart strain. -Admit to medical -Lovenox 1mg/kg with transition to DOAC in AM -Tylenol PRN -Lidoderm patch PRN Discharge patient on: Lidoderm patch Eliquis for anticoagulation. Given how patient was taking anti-contraceptives. Recommended her to withhold this medication as this is likely culprit of her pulmonary emboli.. Patient reports she feels the lidoderm patches have helped. will continue with OTC as an outpatient. Recommend she follows up with her PCP as an outpatient. Discussed and risks and benefits of DOACs. Gave patient coupon for her Eliquis. Confirmed with pharmacy that this will work. Ordered hypercoagulable workup. (2) Anxiety and depression: Chronic. Stable -Continue Escitalopram Total Time Total Time Spent Total Time Spent (In Minutes): 32 Total Time Includes: Examination of the Patient, Discharge Planning and Medication Reconciliation Discharge Plan Discharge Items Patient Disposition: Home - Self-Care Reason For Visit: PE Discharge Diagnosis: PULMONARY EMBOLISM Condition on Discharge: Fair Activity: Resume your previous activity Non-emergency contact: Primary Care Provider Call non-emergency contact if: you have any medication questions Follow-up/Referrals: Norma Lamb MD [Primary Care Provider] - Diet: Regular Addtl Attending Provider Instructions: You were found to have pulmonary embolism. Pending Studies at Discharge: No Stand-Alone Forms: My [employer], Smoking Cessation Medications and DC Order Prescriptions: New Eliquis 5 mg Tablet See Rx Instructions .ROUTE .COMPLEX Qty: 60 RF: 0 Continued escitalopram oxalate 10 mg tablet 10 mg PO DAILY Qty: 30 RF: 5 albuterol sulfate 90 mcg/actuation HFA aerosol inhaler 2 puff inhalation QID PRN (Reason: shortness of breath or wheezing) Qty: 6.7 RF: 0 Discontinued desogestrel-ethinyl estradiol [Apri] 0.15-0.03 mg tablet 1 tab PO DAILY Qty: 28 RF: 11 No Action oxycodone 5 mg tablet 5 mg PO Q8H PRN (Reason: pain) Qty: 10 RF: 0 Discharge Orders: Discharge Order (Routine); Ordered 10/21/20 Ordered By: Silvio Ortiz Admission Data Admit Date/Time: 10/21/20 02:28 Attending Provider: Silvio Ortiz Admit Provider: Francisca Reed Primary Care Provider: Norma Lamb Other Providers: Francisca Reed Other Interventions: Discharge Summary Assessment (RN) Last Done: 10/21/20 12:23 Coding Level of Care Code D/C Day Management >30 mins Diagnoses Acute pulmonary embolism I26.99 Pulmonary embolism type: unspecified Acute cor pulmonale presence: without acute cor pulmonale Anxiety and depression F41.9; F32.9 Time Spent (min) 32
== END 2020-10-21 14:04 | disposition home or self-care (01) | DRG 176 ==
LOC: ED 20:18 → EDINP 10-21 02:28 → SUATTDRO 10-21 02:28 → EDINP 10-21 05:59
DX: F41.9 Anxiety disorder, unspecified; F32.9 Major depressive disorder, single episode, unspecified; I26.99 Other pulmonary embolism without acute cor pulmonale